=== PATIENT | female | born 1960 | race Caucasian/White ===

== ENCOUNTER 2018-09-24 17:28 | Inpatient (IN) | payer OTHER ==
[2018-09-24 19:56] LABS: ADD MAN DIFF? NO
[2018-09-24 19:58] LABS: WHITE BLOOD COUNT 6.8 10^3/ul (4.8-10.8)
[2018-09-24 19:58] LABS: BASOPHIL # 0.1 10^3/ul (0.0-0.1); EOSINOPHILS # 0.1 10^3/ul (0.0-0.5); EOSINOPHILS % 1.6 % (0.0-7.0); HEMATOCRIT 42.4 % (37.0-47.0); HEMOGLOBIN 14.2 g/dl (12.0-16.0); LYMPHOCYTES # 2.8 10^3/ul (0.8-2.9); LYMPHOCYTES % 40.8 % (15.0-51.0); MEAN CORPUSCULAR HEMOGLOBIN 30.1 pg (29.0-33.0); MEAN CORPUSCULAR HGB CONC 33.5 g/dl (32.0-37.0); MEAN CORPUSCULAR VOLUME 89.8 fl (82.0-101.0); MEAN PLATELET VOLUME 9.6 fl (7.4-10.4); MONOCYTE # 0.4 10^3/ul (0.3-0.9); MONOCYTES % 6.5 % (0.0-11.0); NEUTROPHIL # 3.4 10^3/ul (1.6-7.5); PLATELET COUNT 245 10^3/UL (140-415); RED BLOOD COUNT 4.72 10^6/ul (4.20-5.40)
[2018-09-24 20:17] LABS: ANION GAP 8 (5-13); BLOOD UREA NITROGEN 15 mg/dl (7-20); CALCIUM 9.2 mg/dl (8.4-10.2); CARBON DIOXIDE 28 mmol/L (21-31); CHLORIDE 104 mmol/L (97-110); CREATININE 1.01 mg/dl (0.44-1.00); Estimated GFR 56 mL/min (>60); GLUCOSE 96 mg/dl (70-220); SODIUM 140 mmol/L (135-144)
[2018-09-24 20:28] LABS: TROPONIN-I < 0.012 ng/ml (0.000-0.120)
[2018-09-24] MEDS ORDERED: DOCUSATE SODIUM 100 MG CAP PO (21:30)
[2018-09-24] MEDS ORDERED: hydrALAzine 20 MG INJ IV (21:30)
[2018-09-24] MEDS ORDERED: ATROPINE 1 MG/10 ML SYRINGE IV (21:30)
[2018-09-24] MEDS ORDERED: BISACODYL (EC) 5 MG TAB PO (21:30)
[2018-09-24] MEDS ORDERED: ONDANSETRON 4 MG INJ IV (21:30)
[2018-09-25] MEDS: ALBUTEROL 0.083% (NEB) 2.5 MG/3 ML AMP NEB ×3 (02:00→09:00)
[2018-09-25] MEDS: ACETAMINOPHEN 650MG/20.3ML CUP PO ×2 (02:11→09:28)
[2018-09-25 02:56] LABS: CREATINE KINASE 381 IU/L (23-200)
[2018-09-25 03:08] LABS: CK INDEX 0.7; CK-MB 2.48 ng/ml (0.0-2.4); TROPONIN-I < 0.012 ng/ml (0.000-0.120)
[2018-09-25] MEDS: PANTOPRAZOLE (EC) 40 MG TAB PO (05:59)
[2018-09-25 08:32] LABS: CREATINE KINASE 473 IU/L (23-200)
[2018-09-25] MEDS: LISINOPRIL 20 MG TAB PO (08:35)
[2018-09-25 08:40] LABS: CK INDEX 0.7; CK-MB 3.45 ng/ml (0.0-2.4); TROPONIN-I 0.018 ng/ml (0.000-0.120)
[2018-09-25] MEDS: CALCIUM/VITAMIN D (250/125) TAB PO (09:12)
[2018-09-25] MEDS ORDERED: ALBUTEROL 0.083% (NEB) 2.5 MG/3 ML AMP HHN (11:00)
[2018-09-25] MEDS ORDERED: FUROSEMIDE 20 MG INJ IV (20:00)
[2018-09-25] MEDS: ASPIRIN (EC) 81 MG TAB PO (20:46)
[2018-09-26 05:19] LABS: ADD MAN DIFF? NO
[2018-09-26 05:23] LABS: BASOPHIL # 0.1 10^3/ul (0.0-0.1); BASOPHILS % 1.2 % (0.0-2.0); EOSINOPHILS # 0.1 10^3/ul (0.0-0.5); EOSINOPHILS % 1.5 % (0.0-7.0); HEMATOCRIT 45.3 % (37.0-47.0); HEMOGLOBIN 15.1 g/dl (12.0-16.0); LYMPHOCYTES # 2.6 10^3/ul (0.8-2.9); LYMPHOCYTES % 42.9 % (15.0-51.0); MEAN CORPUSCULAR HEMOGLOBIN 29.7 pg (29.0-33.0); MEAN CORPUSCULAR HGB CONC 33.3 g/dl (32.0-37.0); MEAN PLATELET VOLUME 9.9 fl (7.4-10.4); MONOCYTE # 0.4 10^3/ul (0.3-0.9); MONOCYTES % 6.8 % (0.0-11.0); NEUTROPHIL # 2.8 10^3/ul (1.6-7.5); NEUTROPHILS % 47.4 % (39.0-77.0); PLATELET COUNT 229 10^3/UL (140-415); RED BLOOD COUNT 5.09 10^6/ul (4.20-5.40); RED CELL DISTRIBUTION WIDTH 14.2 % (11.5-14.5)
[2018-09-26 05:51] LABS: ALBUMIN 4.5 g/dl (3.3-4.9); ANION GAP 8 (5-13); BLOOD UREA NITROGEN 18 mg/dl (7-20); CALCIUM 9.3 mg/dl (8.4-10.2); CARBON DIOXIDE 25 mmol/L (21-31); CHLORIDE 105 mmol/L (97-110); CREATININE 0.98 mg/dl (0.44-1.00); GLUCOSE 112 mg/dl (70-220); MAGNESIUM 2.2 mg/dl (1.7-2.5); PHOSPHORUS 4.3 mg/dl (2.5-4.9); POTASSIUM 4.2 mmol/L (3.5-5.1); SODIUM 138 mmol/L (135-144)
[2018-09-26] MEDS: PANTOPRAZOLE (EC) 40 MG TAB PO ×2 (06:23→21:23)
[2018-09-26] MEDS: CALCIUM/VITAMIN D (250/125) TAB PO (08:17)
[2018-09-26] MEDS: LISINOPRIL 20 MG TAB PO (08:17)
[2018-09-26] MEDS: ACETAMINOPHEN 650MG/20.3ML CUP PO (14:19)
[2018-09-26] MEDS: LIDOCAINE 5% PATCH TD (17:57)
[2018-09-26] MEDS: TAMSULOSIN (SR) 0.4 MG CAP PO (21:23)
[2018-09-26] MEDS: ASPIRIN (EC) 81 MG TAB PO (21:23)
[2018-09-27] MEDS: ACETAMINOPHEN 650MG/20.3ML CUP PO ×2 (00:35→08:00)
[2018-09-27 05:53] LABS: ADD MAN DIFF? NO
[2018-09-27 05:59] LABS: BASOPHIL # 0.1 10^3/ul (0.0-0.1); BASOPHILS % 0.8 % (0.0-2.0); EOSINOPHILS # 0.1 10^3/ul (0.0-0.5); EOSINOPHILS % 1.1 % (0.0-7.0); HEMATOCRIT 41.6 % (37.0-47.0); LYMPHOCYTES # 2.2 10^3/ul (0.8-2.9); LYMPHOCYTES % 34.8 % (15.0-51.0); MEAN CORPUSCULAR HEMOGLOBIN 30.3 pg (29.0-33.0); MEAN CORPUSCULAR HGB CONC 33.7 g/dl (32.0-37.0); MONOCYTE # 0.4 10^3/ul (0.3-0.9); NEUTROPHIL # 3.6 10^3/ul (1.6-7.5); NEUTROPHILS % 57.1 % (39.0-77.0); PLATELET COUNT 200 10^3/UL (140-415); RED BLOOD COUNT 4.62 10^6/ul (4.20-5.40); RED CELL DISTRIBUTION WIDTH 14.1 % (11.5-14.5)
[2018-09-27 05:59] LABS: WHITE BLOOD COUNT 6.3 10^3/ul (4.8-10.8)
[2018-09-27 06:43] LABS: ALBUMIN 4.3 g/dl (3.3-4.9); ANION GAP 12 (5-13); BLOOD UREA NITROGEN 22 mg/dl (7-20); CALCIUM 9.1 mg/dl (8.4-10.2); CARBON DIOXIDE 22 mmol/L (21-31); CHLORIDE 106 mmol/L (97-110); CREATININE 1.07 mg/dl (0.44-1.00); GLUCOSE 144 mg/dl (70-220); PHOSPHORUS 4.4 mg/dl (2.5-4.9); POTASSIUM 4.1 mmol/L (3.5-5.1); SODIUM 140 mmol/L (135-144)
[2018-09-27] MEDS: TAMSULOSIN (SR) 0.4 MG CAP PO (08:00)
[2018-09-27] MEDS: LISINOPRIL 20 MG TAB PO (08:00)
[2018-09-27] MEDS: PANTOPRAZOLE (EC) 40 MG TAB PO (08:00)
[2018-09-27] MEDS: CALCIUM/VITAMIN D (250/125) TAB PO (08:00)
[2018-09-27] MEDS: LIDOCAINE 5% PATCH TD (08:02)
[2018-09-27] MEDS: BACLOFEN 10 MG TAB PO ×2 (11:09→12:25)
== END 2018-09-27 15:00 | disposition home or self-care (01) | DRG 310 ==
LOC: ICU 21:07 → TEL 09-26 20:18 → FTE 17:28 → 6WM 09-26 20:42
DX: R00.1 Bradycardia, unspecified (principal); I10 Essential (primary) hypertension; E66.9 Obesity, unspecified; Z68.30 Body mass index [BMI] 30.0-30.9, adult; Z79.82 Long term (current) use of aspirin; M62.838 Other muscle spasm
CPT/HCPCS: 36415; 70450; 71045; 74018; 80048; 80069; 82550; 82553; 83735; 84443; 84484; 85025; 87081; 93005; 93306; 94664; 99285-25

== ENCOUNTER 2018-10-03 00:25 | Emergency (ER) | payer OTHER ==
[2018-10-03 03:29] LABS: ADD MAN DIFF? NO
[2018-10-03 03:35] LABS: ADD UMIC YES; UR ASCORBIC ACID NEGATIVE (NEGATIVE); UR BILIRUBIN (Dip) NEGATIVE (NEGATIVE); UR BLOOD (Dip) NEGATIVE (NEGATIVE); UR CLARITY CLEAR (CLEAR); UR COLOR COLORLESS (YELLOW); UR GLUCOSE (Dip) NEGATIVE (NEGATIVE); UR KETONES (Dip) NEGATIVE (NEGATIVE); UR LEUKOCYTE ESTERASE (Dip) TRACE Leu/ul (NEGATIVE); UR NITRITE (Dip) NEGATIVE (NEGATIVE); UR RBC 0 /HPF (0-5); UR SPECIFIC GRAVITY (Dip) 1.002 (1.003-1.030); UR TOTAL PROTEIN (Dip) NEGATIVE (NEGATIVE); UR UROBILINOGEN (Dip) NEGATIVE (NEGATIVE); UR WBC 2 /HPF (0-5)
[2018-10-03 03:48] LABS: ALANINE AMINOTRANSFERASE 39 IU/L (13-69); ALBUMIN 4.6 g/dl (3.3-4.9); ALBUMIN/GLOBULIN RATIO 1.31; ALKALINE PHOSPHATASE 115 IU/L (42-121); ANION GAP 10 (5-13); ASPARTATE AMINO TRANSFERASE 41 IU/L (15-46); BILIRUBIN,INDIRECT 0.7 mg/dl (0-1.1); BILIRUBIN,TOTAL 0.7 mg/dl (0.2-1.3); BLOOD UREA NITROGEN 15 mg/dl (7-20); CALCIUM 9.3 mg/dl (8.4-10.2); CARBON DIOXIDE 24 mmol/L (21-31); CHLORIDE 106 mmol/L (97-110); CREATININE 1.19 mg/dl (0.44-1.00); Estimated GFR 47 mL/min (>60); GLUCOSE 119 mg/dl (70-220); POTASSIUM 4.3 mmol/L (3.5-5.1); SODIUM 140 mmol/L (135-144); TOTAL PROTEIN 8.1 g/dl (6.1-8.1)
[2018-10-03 03:56] LABS: B-TYPE NATRIURETIC PEPTIDE 15 PG/ML (0-125)
[2018-10-03 04:10] LABS: BASOPHIL # 0.1 10^3/ul (0.0-0.1); BASOPHILS % 1.3 % (0.0-2.0); EOSINOPHILS # 0.1 10^3/ul (0.0-0.5); EOSINOPHILS % 1.4 % (0.0-7.0); HEMATOCRIT 38.9 % (37.0-47.0); LYMPHOCYTES # 2.2 10^3/ul (0.8-2.9); LYMPHOCYTES % 39.5 % (15.0-51.0); MEAN CORPUSCULAR HGB CONC 33.4 g/dl (32.0-37.0); MEAN CORPUSCULAR VOLUME 89.8 fl (82.0-101.0); MONOCYTE # 0.4 10^3/ul (0.3-0.9); MONOCYTES % 6.6 % (0.0-11.0); NEUTROPHIL # 2.8 10^3/ul (1.6-7.5); NEUTROPHILS % 50.8 % (39.0-77.0); PLATELET COUNT 238 10^3/UL (140-415); RED BLOOD COUNT 4.33 10^6/ul (4.20-5.40); RED CELL DISTRIBUTION WIDTH 14.3 % (11.5-14.5)
[2018-10-03 04:10] LABS: WHITE BLOOD COUNT 5.6 10^3/ul (4.8-10.8)
== END 2018-10-03 05:37 | disposition home or self-care (01) ==
LOC: FTE 00:25
DX: R53.1 Weakness (principal); I10 Essential (primary) hypertension; Z79.82 Long term (current) use of aspirin
CPT/HCPCS: 36415; 80053; 81001; 83880; 84443; 85025; 93005; 99284-25